=== PATIENT | female | born 1945 | race Caucasian/White ===

== ENCOUNTER → 2017-08-12 08:27 | Outpatient (CLI) | payer MEDICARE, BC, SELFPAY | PROVIDERS: Family Provider Family Medicine; PCP Family Medicine; Visit Provider Physician Assistant | DX: N39.0 Urinary tract infection, site not specified (principal) | CPT/HCPCS: 87086 ==

== ENCOUNTER → 2017-08-18 08:10 | Outpatient (CLI) | payer MEDICARE, BC, SELFPAY ==
[2017-08-18 09:11] LABS: Hemoglobin A1C% w Est Avg Glu 7.9 % (4.0-6.0)
== END ==
PROVIDERS: PCP Family Medicine; Visit Provider Family Medicine
DX: E11.9 Type 2 diabetes mellitus without complications (principal)
CPT/HCPCS: 36415; 83036

== ENCOUNTER → 2017-10-17 08:17 | Outpatient (CLI) | payer MEDICARE, BC, SELFPAY ==
[2017-10-17 09:30] LABS: Hemoglobin A1C% w Est Avg Glu 8.7 % (4.0-6.0)
[2017-10-17 09:52] LABS: BUN Creatinine Ratio 18.9 (6-22); Blood Urea Nitrogen 17 mg/dL (7-17); Calcium 9.4 mg/dL (8.4-10.2); Carbon Dioxide 28 mmol/L (22-32); Chloride 99 mmol/L (98-107); Estimated Glomerular Filt Rate > 60.0 mL/min (>60); Glucose 159 mg/dL (80-110); HEMOLYSIS < 15 (0-50); Potassium 4.1 mmol/L (3.4-5.1); Sodium 137 mmol/L (137-145)
== END ==
PROVIDERS: PCP Family Medicine; Visit Provider Family Medicine
DX: E11.9 Type 2 diabetes mellitus without complications (principal)
CPT/HCPCS: 80048; 83036

== ENCOUNTER → 2017-12-26 10:59 | Outpatient (CLI) | payer MEDICARE, BC, SELFPAY ==
[2017-12-26 11:29] LABS: Hemoglobin A1C% w Est Avg Glu 6.8 % (4.0-6.0)
[2017-12-26 11:51] LABS: Blood Urea Nitrogen 17 mg/dL (7-17); Calcium 10.3 mg/dL (8.4-10.2); Carbon Dioxide 30 mmol/L (22-32); Chloride 99 mmol/L (98-107); Estimated Glomerular Filt Rate 54.8 mL/min (>60); Glucose 119 mg/dL (80-110); HEMOLYSIS < 15 (0-50); Potassium 4.4 mmol/L (3.4-5.1); Sodium 138 mmol/L (137-145)
== END ==
PROVIDERS: Family Provider Family Medicine; PCP Student in an Organized Health Care Education/Training Program; Visit Provider Family Medicine
DX: N28.9 Disorder of kidney and ureter, unspecified (principal); E11.9 Type 2 diabetes mellitus without complications
CPT/HCPCS: 36415; 80048; 83036

== ENCOUNTER → 2018-02-05 09:14 | Outpatient (CLI) | payer MEDICARE, BC, SELFPAY ==
--- NOTE | 2018-02-05 | DI.MG.S_ITS ---
BILATERAL DIGITAL DIAGNOSTIC MAMMOGRAM 3D/2D SHORT-TERM FOLLOW-UP: 02/05/2018 CLINICAL: Patient returns for 6 month follow up of right breast, due for bilateral exam. Comparison is made to exams dated: 07/01/2017 mammogram, 12/20/2016 mammogram, and 12/05/2016 mammogram - [facility]. The tissue of both breasts is heterogeneously dense. This may lower the sensitivity of mammography. There are grouped linear and punctate calcifications in the right breast at 8 o'clock posterior depth. These are increased in number of calcifications. There are new grouped fine punctate calcifications in the left breast at 12 o'clock middle depth. No other significant masses or calcifications are seen in either breast. IMPRESSION: SUSPICIOUS OF MALIGNANCY The grouped linear punctate calcifications in the right breast at 8 o'clock posterior depth likely represent milk of calcium and are probably benign. A follow-up right mammogram in 6 months is recommended given the increase in number. The new grouped fine punctate calcifications in the left breast at 12 o'clock middle depth are at a low suspicion for malignancy. A stereotactic biopsy is recommended. The findings were discussed with the patient and her daughter at the conclusion of the study by Dr. Crain This exam was interpreted at Station ID: [id number]. NOTE: For mammograms, a report in lay terms will be sent to the patient. Approximately 15% of breast malignancies will not be visualized mammographically. In the management of a palpable breast mass, a negative mammogram must not discourage biopsy of a clinically suspicious lesion. Electronically Signed By: Navi Fox M.D. ddp/:02/05/2018 11:40:22 copy to: MARCIANO VASQUEZ MD copy to: MAURO RENAE letter sent: Biopsy Required ACR BI-RADS Category 4a: Suspicious abnormality - low suspicion for malignancy 3344F
== END ==
PROVIDERS: Family Provider Family Medicine; PCP Student in an Organized Health Care Education/Training Program; Visit Provider Family Medicine
DX: R92.1 Mammographic calcification found on diagnostic imaging of breast (principal)
CPT/HCPCS: 77066; G0279

== ENCOUNTER → 2018-04-14 10:52 | Outpatient (CLI) | payer MEDICARE, BC, SELFPAY ==
[2018-04-14 11:37] LABS: Hematocrit 43.9 % (36-46); Hemoglobin 14.6 g/dL (12.0-16.0); Mean Corpuscular HGB Conc 33.3 % (30-36); Mean Corpuscular Volume 87.1 fL (80-100); Platelet Count 215 X10^3/uL (150-400); Red Blood Cell Count 5.04 X10^6/uL (4.0-5.2); Red Cell Distribution Width 12.5 % (11.6-14.8)
[2018-04-14 11:52] LABS: Hemoglobin A1C% w Est Avg Glu 5.9 % (4.0-6.0)
[2018-04-14 12:07] LABS: BUN Creatinine Ratio 18.8 (6-22); Blood Urea Nitrogen 15 mg/dL (7-17); Calcium 9.6 mg/dL (8.4-10.2); Carbon Dioxide 30 mmol/L (22-32); Chloride 98 mmol/L (98-107); Estimated Glomerular Filt Rate > 60.0 mL/min (>60); Glucose 60 mg/dL (80-110); HEMOLYSIS < 15 (0-50); Potassium 4.5 mmol/L (3.4-5.1); Sodium 138 mmol/L (137-145)
[2018-04-14 12:18] LABS: Vitamin D 25 Hydroxy (D3) 27.3 ng/mL (30.0-100.0)
== END ==
PROVIDERS: PCP Student in an Organized Health Care Education/Training Program; Visit Provider Specialist
DX: N18.2 Chronic kidney disease, stage 2 (mild) (principal); E55.9 Vitamin D deficiency, unspecified; C64.9 Malignant neoplasm of unspecified kidney, except renal pelvis; F32.9 Major depressive disorder, single episode, unspecified; I10 Essential (primary) hypertension; E11.9 Type 2 diabetes mellitus without complications
CPT/HCPCS: 36415; 80048; 82306; 83036; 85027

== ENCOUNTER 2018-08-01 13:49 | Emergency (ER) | payer MEDICARE, BC, SELFPAY ==
[2018-08-01] VITALS (11 sets, daily range): BP systolic 90–181; BP diastolic 50–113; PULSE 56–90; RESP 12–22; TEMP 36.7; O2SAT 88–98
--- NOTE | 2018-08-01 14:08 | DI.RAD.S_ITS ---
PROCEDURE: XR CHEST 1V INDICATIONS: chest pain TECHNIQUE: One view of the chest was acquired. COMPARISON: [facility], CT, CT HEAD/BRAIN WO CON, 08/01/2018, 14:30. [facility], CT, CT ANGIO CHEST ABDOMEN PELVIS, 08/01/2018, 14:30. [facility], CR, CHEST 2 VIEW, 07/27/2015, 8:32. FINDINGS: Surgical changes and devices: Upper abdominal clips are seen in this patient with a known left nephrectomy. Lungs and pleura: Lungs are clear. No pleural effusions or pneumothorax. Mediastinum: Cardiac prominence is seen, which is compatible with the patient's known ascending thoracic aortic aneurysm. The cardiac contours are within normal limits. Bones and chest wall: No suspicious bony lesions. Age-appropriate bony degenerative changes are seen. Overlying soft tissues appear unremarkable. IMPRESSION: No acute abnormality is seen. Known ascending thoracic aortic aneurysm. Prior left nephrectomy. Dictated by: Jerome Murray M.D. on 08/01/2018 at 14:21 Approved by: Jerome Murray M.D. on 08/01/2018 at 14:22
[2018-08-01 14:14] LABS: Add Manual Diff / Slide Review NO; Basophils Absolute Auto 100 /uL (0-100); Basophils Percent Auto 1.3 % (0-2); Eosinophils Absolute Auto 100 /uL (0-450); Eosinophils Percent Auto 1.3 % (2-4); Hematocrit 43.6 % (36-46); Hemoglobin 14.7 g/dL (12.0-16.0); Lymphocytes Absolute Auto 2800 /uL (1100-4500); Lymphocytes Percent Auto 31.7 % (25-40); Mean Corpuscular HGB Conc 33.8 % (30-36); Mean Corpuscular Hemoglobin 28.5 PG (26-34); Mean Corpuscular Volume 84.1 fL (80-100); Monocytes Absolute Auto 600 /uL (0-900); Monocytes Percent Auto 7.1 % (3-14); Neutrophils Absolute Auto 5100 /uL (1500-7000); Neutrophils Percent Auto 58.6 % (50-75); Platelet Count 214 X10^3/uL (150-400); Red Blood Cell Count 5.18 X10^6/uL (4.0-5.2); Red Cell Distribution Width 13.3 % (11.6-14.8); White Blood Cell Count 8.8 X10^3/uL (4.5-11.0)
[2018-08-01] MEDS: ONDANSETRON 4 MG/2 ML INJ IV (14:23)
--- NOTE | 2018-08-01 14:23 | DI.CT.S_ITS ---
PROCEDURE: CT HEAD/BRAIN WO CON INDICATIONS: dizzy lightheaded passed out TECHNIQUE: This study was ordered with contrast, but was performed without contrast. Noncontrast 4.5 mm thick angled axial sections acquired from the foramen magnum to the vertex, with coronal and sagittal reformats. For radiation dose reduction, the following was used: automated exposure control, adjustment of mA and/or kV according to patient size. COMPARISON: Head CT 11/19/17. Located [facility], CR, XR CHEST 1V, 08/01/2018, 15:05. Located [facility], CT, CT ANGIO CHEST ABDOMEN PELVIS, 08/01/2018, 14:30. FINDINGS: Image quality: Excellent. CSF spaces: Basal cisterns are patent. No extra-axial fluid collections. The ventricles are symmetric in size and shape. Brain: No intracranial bleeds or masses. There is cerebral volume loss for age, with resultant ventricular and sulcal prominence. There are periventricular and deep white matter chronic small vessel ischemic changes. There is intracranial internal carotid artery atherosclerosis. Skull and face: Calvarium and visualized facial bones appear intact, without suspicious lesions. Sinuses: Visualized sinuses and mastoids are clear. IMPRESSION: Normal intracranial study for age, without an imaging explanation for the presenting symptoms. No significant change from the prior. Dictated by: Jerome Murray M.D. on 08/01/2018 at 14:23 Approved by: Jerome Murray M.D. on 08/01/2018 at 14:25
--- NOTE | 2018-08-01 14:23 | DI.CT.S_ITS ---
PROCEDURE: CT ANGIO CHEST ABDOMEN PELVIS INDICATIONS: Known ascending aneurysm TECHNIQUE: Precontrast images were not performed. After the administration of intravenous contrast, 2.5 mm thick sections again acquired from the lung apices to the iliac crests. Maximum intensity projection (MIP) oblique sagittal and coronal reformats were then acquired. For radiation dose reduction, the following was used: automated exposure control. This patient was premedicated. No immediate contrast reactions were experienced a COMPARISON: [facility], CR, XR CHEST 1V, 08/01/2018, 15:05. FINDINGS: Image quality: Excellent. AORTA: There is again seen in the ascending thoracic aortic aneurysm, which measures 4.7 cm transversely, when measured on coronal images. The aortic arch and descending thoracic aorta and a pelvic abdominal aorta likewise demonstrates normal caliber. No findings of dissection can be seen. Atherosclerotic calcification can be seen. CHEST: Lungs and pleura: Mild dependent atelectasis is seen. No pleural effusions or pneumothorax. Central and peripheral airways are patent and normal in caliber. Mediastinum: Heart size is normal. No pericardial effusion. No mediastinal or hilar adenopathy by size criteria. Central pulmonary arteries are normal in size. Esophagus is normal in caliber. No hiatal hernias. Bones and chest wall: No axillary adenopathy by size criteria. Thyroid gland demonstrates irregularity, without a focal lesion. No suspicious bony lesions. No vertebral body compression fractures. ABDOMEN: Vasculature: Celiac trunk and mesenteric arteries are patent. Renal arteries are also patent. Solid organs: Liver is normal in size and enhancement. Gallbladder demonstrates a gallstone within its lumen, as on series 10 image 106. Biliary system is non dilated. Pancreas enhances normally. Spleen is normal in size and enhancement. No adrenal nodules. This patient is status post left nephrectomy. No abnormal soft tissue can be seen within the left nephrectomy bed. The right kidney demonstrates no focal abnormality. No right-sided hydronephrosis is seen. Peritoneum and bowel: No free fluid or air. Bowel loops are normal in caliber and wall thickness. Nodes and vessels: No retroperitoneal or mesenteric adenopathy by size criteria. Inferior vena cava is normal in morphology. Miscellaneous: No ventral hernias. PELVIS: Genitourinary: Bladder wall thickness is normal. A fibroid uterus can be seen. Miscellaneous: No inguinal hernias or adenopathy. No ventral hernias. Bones: No suspicious bony lesions. No vertebral body compression fractures. Mild levoconvex scoliotic curvature is noted. Degenerative changes are seen throughout. IMPRESSION: Stable ascending thoracic aortic aneurysm, which measures 4.7cm transversely. Left nephrectomy, without findings of local recurrence or metastatic disease. Incidental note is made of: Irregular thyroid, without a focal lesion Gallstone Fibroid uterus Levoconvex scoliotic curvature Dictated by: Jerome Murray M.D. on 08/01/2018 at 14:12 Approved by: Jerome Murray M.D. on 08/01/2018 at 14:21
[2018-08-01] MEDS: methylPREDNISolone 125 MG/2 ML VIAL IV (14:28)
[2018-08-01] MEDS: diphenhydrAMINE 50 MG/ML VIAL 25 MG IV (14:28)
[2018-08-01] MEDS: SODIUM CHLORIDE 0.9% 1,000 ML 1000 ML IV (14:29)
[2018-08-01 14:30] LABS: PTT Partial Thromboplastin Tim 29 SECONDS (26.4-36.2)
[2018-08-01 14:32] LABS: Alanine Aminotransferase 23 IU/L (9-52); Albumin 4.6 g/dL (3.5-5.0); Albumin Globulin Ratio 1.2 (1.0-2.8); Alkaline Phosphatase 74 U/L (38-126); Aspartate Aminotransferase 24 IU/L (14-36); BUN Creatinine Ratio 22.9 (6-22); Bilirubin Total 0.7 mg/dL (0.2-1.3); Blood Urea Nitrogen 16 mg/dL (7-17); Calcium 9.8 mg/dL (8.4-10.2); Carbon Dioxide 25 mmol/L (22-32); Chloride 99 mmol/L (98-107); Creatine Kinase 82 U/L (30-135); Estimated Glomerular Filt Rate > 60.0 mL/min (>60); Globulin 3.7 g/dL (1.7-4.1); Glucose 146 mg/dL (80-110); HEMOLYSIS < 15 (0-50); Lipase 195 U/L (23-300); Potassium 3.4 mmol/L (3.4-5.1); Sodium 137 mmol/L (137-145); Total Protein 8.3 g/dL (6.3-8.2)
--- NOTE | 2018-08-01 14:33 | ED_ITS ---
HPI - Syncope General Chief Complaint: Dizziness Stated Complaint: dizzy, fainting, vomiting Time Seen by Provider: 08/01/18 14:14 Source: patient and family Mode of arrival: wheelchair Limitations: no limitations History of Present Illness HPI narrative: The patient is a sharon 72-year-old female who presents with dizziness lightheadedness nausea. She said she was doing well last night she had dinner with friends. Woke up this morning and was extremely dizzy. Worse with movement and turning her head. She has some point got nauseated no real vomiting. Extremely lightheaded. Walking into the hospital almost passed out. Her is helped her to the wheelchair. She denies any focal weakness no shaking or seizure activity. No speech difficulty or visual changes. Patient also has a known ascending aortic aneurysm. She denies any chest pain is is not hypotensive. No shortness of breath. MD complaint: almost passed out Current symptoms: lightheaded and vertigo Related Data Home Medications Medication Instructions Recorded Confirmed metoprolol succinate ER 100 mg 100 mg PO BID tab 07/07/18 08/01/18 tablet,extended release 24 hr losartan 50 mg PO BID 08/01/18 08/01/18 valacyclovir 500 mg PO DAILY 08/01/18 08/01/18 Previous Rx's Medication Instructions Recorded Glucose: Home Monitor box QDAY #1 05/16/16 Lancets / QDAY #100 05/16/16 atorvastatin 10 mg tablet 10 mg PO HS #90 tab 08/19/17 Glucose: Test Strips See Rx Instructions .ROUTE BID 01/02/18 #100 strip glimepiride 4 mg tablet 4 mg PO QAM #90 tab 06/03/18 sertraline 25 mg tablet 25 mg PO DAILY #30 tab 06/16/18 ondansetron 4 mg PO Q6-8H PRN #10 tab 08/01/18 Allergies Allergy/AdvReac Type Severity Reaction Status Date / Time iodine [IODINE] Allergy Severe HIVES, Verified 08/01/18 14:24 SWELLING, DIFFICULTY BREATHING, AND CHOKING Review of Systems Review of Systems ROS Unobtainable: All systems reviewed & are unremarkable except as noted in HPI and below Constitutional Denies chills, Denies fever(s), Denies lethargy and Denies weakness Eyes Denies change in vision, Denies eye discharge, Denies irritation and Denies loss of vision ENT Ears, Nose, Mouth, and Throat: Denies change in voice, Denies neck pain and Denies sore throat Cardiovascular Denies chest pain, Denies irregular heart rhythm, Denies claudication, Reports lightheadedness, Denies dyspnea and Denies dyspnea on exertion Respiratory Denies cough, Denies dyspnea, Denies dyspnea on exertion and Denies wheezing Gastrointestinal Gastrointestinal: Denies abdominal pain, Denies change in bowel habits, Denies diarrhea, Denies nausea and Denies vomiting Genitourinary Denies hematuria, Denies flank pain, Denies urinary incontinence and Denies urinary urgency Musculoskeletal Denies neck pain Integumentary/Breasts Denies pruritus, Denies erythema, Denies rash and Denies wounds Neurologic Denies loss of vision and Denies weakness Allergic/Immunologic Denies wheezing [facility] Medical History Anxiety (Chronic) Depression (Chronic) Ascending aortic aneurysm (Chronic ~2002) COPD (chronic obstructive pulmonary disease) (Chronic Unknown) Coronary artery disease (Chronic ~2013) Cancer of kidney (Resolved ~1987) Essential hypertension (Chronic 02/09/15) Mixed hyperlipidemia (Chronic 02/09/15) Type 2 diabetes mellitus without complication (Chronic 02/09/15) Chronic renal insufficiency, stage III (moderate) (Chronic 09/21/15) Genital herpes simplex (Chronic Unknown) Primary open angle glaucoma (Chronic 2008) Surgical History History of nephrectomy (Resolved 1987) History of breast biopsy (Resolved) Family History (Updated 12/29/17 @ 13:41 by Carleen Jean-Baptiste) Brother Lung cancer Father Pancreatic cancer Mother Heart disease Grandfather Heart disease Grandmother Bladder cancer Grandfather Heart disease Grandmother Heart disease Brother Hypertension Prostate cancer Daughter Hypertension Son No problems noted. Social History Smoking Status: Never smoker Family History Brother Lung cancer Father Pancreatic cancer Mother Heart disease Grandfather Heart disease Grandmother Bladder cancer Grandfather Heart disease Grandmother Heart disease Brother Hypertension Prostate cancer Daughter Hypertension Son No problems noted. Social History Smoking Status: Never smoker Exam Initial Vital Signs Initial Vital Signs: Vital Signs Temperature 98.1 F 08/01/18 13:50 Pulse Rate 60 08/01/18 13:50 Respiratory Rate 14 08/01/18 13:50 Blood Pressure 181/84 H 08/01/18 13:50 Pulse Oximetry 98 08/01/18 13:50 GENERAL: Weak slightly pale appearing female and in no acute distress. HEENT: Head atraumatic,EOMI, pupils reactive, no nystagmus face symmetric, moist mucous membranes CARDIOVASCULAR: Regular rate and rhythm without murmurs, rubs or gallops. RESPIRATORY: Breath sounds equal bilaterally, no wheezes rales or rhonchi. ABDOMEN: Soft, nontender. Normoactive bowel sounds all 4 quadrants. No guarding or rebound. EXTREMITIES: Normal range of motion, no clubbing or edema. Neurovascularly intact NEUROLOGICAL: Alert and oriented x4. No dysarthria or aphasia Cranial nerves II through XII grossly intact. Good [id number], good [id number], strength equal bilaterally, no dysarthria or aphasia, sensation in tact to soft touch bilaterally, no visual changes, no facial droop SKIN: Warm, dry, no laceration, no petechiae, no rashes or lesions. Scores NIH Stroke Scale Level of Conciousness: Alert, keenly responsive Ask month/age: Answers both questions correctly. Open/close eyes, close hand: Performs both tasks correctly Best gaze horizontal: Normal Visual sin: No visual loss Facial palsy: Normal symetrical movement Left arm drift: No drift for full 10 sec Right arm drift: No drift for full 10 sec Left leg drift: No drift for full 10 sec Right leg drift: No drift for full 10 sec Limb ataxia: Absent Sensory on face/arms/legs: Normal, no sensory loss Best language: No aphasia, normal Dysarthria: Normal Extinction or inattention: No abnormality Total NIH Stroke scale score: 0 Course Orders Ordered: ED Orders 08/01/18 14:08 XR chest 1V Stat EKG-12 Lead Stat 08/01/18 14:10 Complete Blood Count AUTO DIFF Stat Comprehensive Metabolic Panel Stat Lipase Stat Partial Thromboplastin Time Stat Prothrombin Time INR Stat Troponin & CK Cardiac Panel Stat 08/01/18 14:23 CT angio chest abdomen pelvis Stat CT head/brain w con Stat Discontinued Medications Diphenhydramine HCl (Benadryl) 25 mg IV NOW ONE Stop: 08/01/18 14:24 Last Admin: 08/01/18 14:28 Dose: 25 mg Sodium Chloride (Normal Saline 0.9%) 1,000 mls @ 1,000 mls/hr IV BOLUS ONE Stop: 08/01/18 15:24 Last Infusion: 08/01/18 15:59 Dose: 0 mls/hr Admin: 08/01/18 14:29 Dose: 1,000 mls/hr Methylprednisolone (Solu-Medrol 125 Mg Vial) 125 mg IV NOW ONE Stop: 08/01/18 14:24 Last Admin: 08/01/18 14:28 Dose: 125 mg Ondansetron HCl (Zofran) 4 mg IV NOW ONE Stop: 08/01/18 14:09 Last Admin: 08/01/18 14:23 Dose: 4 mg Vital Signs - 8 hr 08/01/18 13:50 08/01/18 14:00 08/01/18 14:16 Temperature 98.1 F Pulse Rate 60 60 56 L Respiratory Rate 14 12 17 Blood Pressure 181/84 H Blood Pressure [Left Arm] 159/62 H 150/113 H Blood Pressure [Right Arm] 181/84 H Pulse Oximetry 98 98 98 08/01/18 14:20 08/01/18 14:31 08/01/18 14:45 Temperature Pulse Rate 56 L 58 L 60 Respiratory Rate 17 16 18 Blood Pressure Blood Pressure [Left Arm] 159/60 H 90/50 L 121/72 Blood Pressure [Right Arm] Pulse Oximetry 92 91 90 L 08/01/18 14:55 08/01/18 14:57 08/01/18 15:11 Temperature Pulse Rate 64 60 64 Respiratory Rate 16 16 19 Blood Pressure Blood Pressure [Left Arm] 152/67 H 143/111 H Blood Pressure [Right Arm] Pulse Oximetry 88 L 95 97 08/01/18 15:50 08/01/18 16:00 Temperature Pulse Rate 58 L 90 Respiratory Rate 16 22 Blood Pressure Blood Pressure [Left Arm] 134/72 Blood Pressure [Right Arm] Pulse Oximetry 94 95 MDM - Syncope Lab Data Attestation: I reviewed the patient's lab results. Result diagrams: 08/01/18 14:10 08/01/18 14:10 Lab Results 08/01/18 08/01/18 08/01/18 Range/Units 14:10 14:10 14:10 WBC 8.8 (4.5-11.0) X10^3/uL RBC 5.18 (4.0-5.2) X10^6/uL Hgb 14.7 (12.0-16.0) g/dL Hct 43.6 (36-46) % MCV 84.1 (80-100) fL MCH 28.5 (26-34) PG MCHC 33.8 (30-36) % RDW 13.3 (11.6-14.8) % Plt Count 214 (150-400) X10^3/uL Neut % (Auto) 58.6 (50-75) % Lymph % (Auto) 31.7 (25-40) % Becker % (Auto) 7.1 (3-14) % Eos % (Auto) 1.3 L (2-4) % Baso % (Auto) 1.3 (0-2) % Neut # (Auto) 5100 (2651-0890) /uL Lymph # (Auto) 2800 (2934-5499) /uL Becker # (Auto) 600 (0-900) /uL Eos # (Auto) 100 (0-450) /uL Baso # (Auto) 100 (0-100) /uL PT 11.0 (10.1-12.7) SECONDS INR 1.0 (0.9-1.3) APTT 29 (26.4-36.2) SECONDS Sodium 137 (137-145) mmol/L Potassium 3.4 (3.4-5.1) mmol/L Chloride 99 (98-107) mmol/L Carbon Dioxide 25 (22-32) mmol/L BUN 16 (7-17) mg/dL Creatinine 0.70 (0.52-1.04) mg/dL Estimated GFR > 60.0 (>60) mL/min BUN/Creatinine Ratio 22.9 H (6-22) Glucose 146 H (80-110) mg/dL Calcium 9.8 (8.4-10.2) mg/dL Total Bilirubin 0.7 (0.2-1.3) mg/dL AST 24 (14-36) IU/L ALT 23 (9-52) IU/L Alkaline Phosphatase 74 (38-126) U/L Total Creatine Kinase 82 (30-135) U/L CK-MB (CK-2) TNP CK-MB (CK-2) Rel Index TNP Troponin I < 0.012 (0.01-0.034) ng/mL Total Protein 8.3 H (6.3-8.2) g/dL Albumin 4.6 (3.5-5.0) g/dL Globulin 3.7 (1.7-4.1) g/dL Albumin/Globulin Ratio 1.2 (1.0-2.8) Lipase 195 (23-300) U/L Point of Care Testing Glucose POC 128 Urine Dip Bedside Urine Glucose Negative Bedside Urine Bilirubin - Negative Bedside Urine Ketone - Negative Urine Specific [place] 1.010 Bedside Urine Occult Blood - Negative Bedside Urine pH 7.0 Bedside Urine Protein +/- 15 Bedside Urine Urobilinogen - Negative Bedside Urine Nitrite - Negative Bedside Urine Leukocytes - Negative Esterase Imaging Data Chest x-ray: Radiologist's impression: PROCEDURE: XR CHEST 1V INDICATIONS: chest pain TECHNIQUE: One view of the chest was acquired. COMPARISON: [facility], CT, CT HEAD/BRAIN WO CON, 08/01/2018, 14:30. [facility], CT, CT ANGIO CHEST ABDOMEN PELVIS, 08/01/2018, 14:30. [facility], CR, CHEST 2 VIEW, 07/27/2015, 8:32. FINDINGS: Surgical changes and devices: Upper abdominal clips are seen in this patient with a known left nephrectomy. Lungs and pleura: Lungs are clear. No pleural effusions or pneumothorax. Mediastinum: Cardiac prominence is seen, which is compatible with the patient's known ascending thoracic aortic aneurysm. The cardiac contours are within normal limits. Bones and chest wall: No suspicious bony lesions. Age-appropriate bony degenerative changes are seen. Overlying soft tissues appear unremarkable. IMPRESSION: No acute abnormality is seen. Known ascending thoracic aortic aneurysm. Prior left nephrectomy. Dictated by: Jerome Murray M.D. on 08/01/2018 at 14:21 CTA chest/ab/pelvis: Radiologist's impression: PROCEDURE: CT ANGIO CHEST ABDOMEN PELVIS INDICATIONS: Known ascending aneurysm TECHNIQUE: Precontrast images were not performed. After the administration of intravenous contrast, 2.5 mm thick sections again acquired from the lung apices to the iliac crests. Maximum intensity projection (MIP) oblique sagittal and coronal reformats were then acquired. For radiation dose reduction, the following was used: automated exposure control. This patient was premedicated. No immediate contrast reactions were experienced a COMPARISON: [facility], CR, XR CHEST 1V, 08/01/2018, 15:05. FINDINGS: Image quality: Excellent. AORTA: There is again seen in the ascending thoracic aortic aneurysm, which measures 4.7 cm transversely, when measured on coronal images. The aortic arch and descending thoracic aorta and a pelvic abdominal aorta likewise demonstrates normal caliber. No findings of dissection can be seen. Atherosclerotic calcification can be seen. CHEST: Lungs and pleura: Mild dependent atelectasis is seen. No pleural effusions or pneumothorax. Central and peripheral airways are patent and normal in caliber. Mediastinum: Heart size is normal. No pericardial effusion. No mediastinal or hilar adenopathy by size criteria. Central pulmonary arteries are normal in size. Esophagus is normal in caliber. No hiatal hernias. Bones and chest wall: No axillary adenopathy by size criteria. Thyroid gland demonstrates irregularity, without a focal lesion. No suspicious bony lesions. No vertebral body compression fractures. ABDOMEN: Vasculature: Celiac trunk and mesenteric arteries are patent. Renal arteries are also patent. Solid organs: Liver is normal in size and enhancement. Gallbladder demonstrates a gallstone within its lumen, as on series 10 image 106. Biliary system is non dilated. Pancreas enhances normally. Spleen is normal in size and enhancement. No adrenal nodules. This patient is status post left nephrectomy. No abnormal soft tissue can be seen within the left nephrectomy bed. The right kidney demonstrates no focal abnormality. No right-sided hydronephrosis is seen. Peritoneum and bowel: No free fluid or air. Bowel loops are normal in caliber and wall thickness. Nodes and vessels: No retroperitoneal or mesenteric adenopathy by size criteria. Inferior vena cava is normal in morphology. Miscellaneous: No ventral hernias. PELVIS: Genitourinary: Bladder wall thickness is normal. A fibroid uterus can be seen. Miscellaneous: No inguinal hernias or adenopathy. No ventral hernias. Bones: No suspicious bony lesions. No vertebral body compression fractures. Mild levoconvex scoliotic curvature is noted. Degenerative changes are seen thro ughout. IMPRESSION: Stable ascending thoracic aortic aneurysm, which measures 4.7cm transversely. Left nephrectomy, without findings of local recurrence or metastatic disease. Incidental note is made of: Irregular thyroid, without a focal lesion Gallstone Fibroid uterus Levoconvex scoliotic curvature Dictated by: Jerome Murray M.D. on 08/01/2018 at 14:12 CT scan - head: Radiologist's impression: PROCEDURE: CT HEAD/BRAIN WO CON INDICATIONS: dizzy lightheaded passed out TECHNIQUE: This study was ordered with contrast, but was performed without contrast. Noncontrast 4.5 mm thick angled axial sections acquired from the foramen magnum to the vertex, with coronal and sagittal reformats. For radiation dose reduction, the following was used: automated exposure control, adjustment of mA and/or kV according to patient size. COMPARISON: Head CT 11/19/17. [facility], CR, XR CHEST 1V, 08/01/2018, 15:05. [facility], CT, CT ANGIO CHEST ABDOMEN PELVIS, 08/01/2018, 14:30. FINDINGS: Image quality: Excellent. CSF spaces: Basal cisterns are patent. No extra-axial fluid collections. The ventricles are symmetric in size and shape. Brain: No intracranial bleeds or masses. There is cerebral volume loss for age, with resultant ventricular and sulcal prominence. There are periventricular and deep white matter chronic small vessel ischemic changes. There is intracranial internal carotid artery atherosclerosis. Skull and face: Calvarium and visualized facial bones appear intact, without suspicious lesions. Sinuses: Visualized sinuses and mastoids are clear. IMPRESSION: Normal intracranial study for age, without an imaging explanation for the presenting symptoms. No significant change from the prior. Dictated by: Jerome Murray M.D. on 08/01/2018 at 14:23 ECG Data Attestation: I personally reviewed and interpreted this ECG as follows: Prior ECG tracings: available for review Interpretation: Normal sinus rhythm rate 58 Q-wave noted in lead [address] elevations no T-wave inversions similar to previous EKG MDM Narrative Medical decision making narrative: Patient is overall feeling much better after IV fluids and Zofran. Head CT and CT angio are stable. His she is ambulatory to the restroom without any difficulty. At this time I had symptoms suggest more vertigo rather than a CVA. Her aneurysm is stable. Patient feels ready and able to go home. Discharge Plan Departure Patient Disposition: Home Clinical Impression: Vertigo Discharge Date/Time: 08/01/18 16:31 Interventions: ED Discharge Assessment Last Done: 08/01/18 16:30 Instructions: DI for Vertigo Activity Restrictions/Additional Instructions: *You have been diagnosed with vertigo *What to do: Symptoms should resolve spontaneously. Recommend sleeping. *Continue to take medications as directed -Zofran mg every 6-8 hours if needed for nausea *Follow up with your primary care provider in 2-3 days --sent to [facility] *Return to ER if you should have worsening dizziness, balance problems, weakness or any new, worsening or concerning symptoms Prescriptions: New ondansetron 4 mg tablet,disintegrating 4 mg PO Q6-8H PRN (Reason: nausea and vomiting) Qty: 10 RF: 0 No Action atorvastatin [Lipitor] 10 mg tablet 10 mg PO HS Qty: 90 RF: 3 Glucose: Home Monitor QDAY Qty: 1 RF: 0 Lancets QDAY Qty: 100 RF: 0 Glucose: Test Strips See Rx Instructions .ROUTE BID Qty: 100 RF: 3 glimepiride 4 mg tablet 4 mg PO QAM Qty: 90 RF: 1 sertraline 25 mg tablet 25 mg PO DAILY Qty: 30 RF: 11 metoprolol succinate [Toprol XL] 100 mg tablet extended release 24 hr 100 mg PO BID RF: 0 losartan 50 mg tablet 50 mg PO BID RF: 0 valacyclovir 500 mg tablet 500 mg PO DAILY RF: 0 Referrals: Erik Russell MD [Primary Care Provider] -
[2018-08-01 14:43] LABS: Troponin I < 0.012 ng/mL (0.01-0.034)
--- NOTE | 2018-08-01 16:00 | PC.NURSE ---
Pt walked with steady gait without issue. States feeling much better, not quite back to normal.
== END 2018-08-01 16:31 | disposition home or self-care (01) ==
PROVIDERS: Emergency Provider Emergency Medicine; PCP Student in an Organized Health Care Education/Training Program
DX: R42 Dizziness and giddiness (principal); R55 Syncope and collapse; R11.0 Nausea
CPT/HCPCS: 36591; 70460; 71045; 71275; 74174; 80053; 81003; 82550; 82962; 83690; 84484; 85025; 85610; 85730; 93005; 93010; 96361; 96374; 96375; 99285; J1200; J2405; J2930; Q9967

== ENCOUNTER → 2018-08-25 12:32 | Outpatient (CLI) | payer MEDICARE, BC, SELFPAY ==
--- NOTE | 2018-08-25 12:33 | DI.MG.S_ITS ---
UNILATERAL RIGHT DIGITAL DIAGNOSTIC MAMMOGRAM 3D/2D SHORT-TERM FOLLOW-UP: 08/25/2018 CLINICAL: Patient returns for a 6 month follow up of the right breast. Comparison is made to exams dated: 02/05/2018 mammogram, 07/01/2017 mammogram, 12/20/2016 mammogram, and 12/05/2016 mammogram - [facility]. The tissue of right breast is heterogeneously dense. This may lower the sensitivity of mammography. There are a grouped linear punctate calcifications in the right breast at 8 o'clock posterior depth. These are not significantly changed. No other significant masses or calcifications are seen in the breast. IMPRESSION: PROBABLY BENIGN The grouped linear punctate calcifications in the right breast remain stable and are probably benign. A follow-up mammogram in 6 months is recommended to complete documentation of 2 years of stability. Patient is due for screening mammogram of the left breast in 6 months. This exam was interpreted at Station ID: [id number]. NOTE: For mammograms, a report in lay terms will be sent to the patient. Approximately 15% of breast malignancies will not be visualized mammographically. In the management of a palpable breast mass, a negative mammogram must not discourage biopsy of a clinically suspicious lesion. Electronically Signed By: Kevin Gifford M.D. aty/:08/25/2018 14:01:00 copy to: MARCIANO VASQUEZ MD letter sent: Followup Recommended ACR BI-RADS Category 3: Probably benign [id number]
== END ==
PROVIDERS: PCP Student in an Organized Health Care Education/Training Program; Visit Provider Student in an Organized Health Care Education/Training Program
DX: R92.1 Mammographic calcification found on diagnostic imaging of breast (principal)
CPT/HCPCS: 77065; G0279

== ENCOUNTER → 2018-10-01 07:59 | Outpatient (CLI) | payer MEDICARE, BC, SELFPAY ==
--- NOTE | 2018-10-01 08:02 | DI.US.S_ITS ---
PROCEDURE: US ABDOMEN COMPLETE INDICATIONS: Abdominal and side pain TECHNIQUE: Real-time scanning was performed of the abdominal and retroperitoneal organs, with image documentation. COMPARISON: [facility], US, RENAL COMPLETE, 11/11/2014, 14:20. [facility], US, RENAL OR RETROPERITONEAL LIMIT, 02/14/2014, 11:13. [facility], US, RENAL COMPLETE, 06/01/2012, 9:28. [facility], US, ABDOMEN COMPLETE, 06/01/2012, 9:41. [facility], CT, CT ANGIO CHEST ABDOMEN PELVIS, 08/01/2018, 14:30. FINDINGS: Liver: Liver is normal in size and homogeneous in echotexture. Gallbladder: There are gallstones. There is no gallbladder wall thickening, pericholecystic fluid or sonographic Mccauley's sign. Biliary ducts: Intrahepatic bile ducts are non-dilated. Extrahepatic bile duct caliber measures 4.4 mm. Normal is 6-7 mm or less in diameter, or 10 mm or less post-cholecystectomy. Pancreas: Visualized portions of the pancreas are sonographically normal. Spleen: Spleen is normal in size and homogeneous in echotexture. Kidneys: Left kidney is absent. Right kidney measures 12.0 cm long. No hydronephrosis or nephrolithiasis. No solid masses. Aorta: Visualized aorta is normal in caliber at less than 3 cm. Iliacs: Proximal common iliac arteries are normal in caliber at less than 2.5 cm. IVC: Intrahepatic inferior vena cava is patent. Miscellaneous: No free abdominal fluid. IMPRESSION: 1. Cholelithiasis. No ultrasound findings to suggest acute cholecystitis. 2. 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 Dictated by: Jonas Jorge M.D. on 10/01/2018 at 10:31 Approved by: Jonas Jorge M.D. on 10/01/2018 at 10:36
== END ==
PROVIDERS: PCP Student in an Organized Health Care Education/Training Program; Visit Provider Registered Nurse
DX: K80.20 Calculus of gallbladder without cholecystitis without obstruction (principal); R10.32 Left lower quadrant pain; Z90.5 Acquired absence of kidney
CPT/HCPCS: 76700

== ENCOUNTER → 2018-12-17 07:23 | Outpatient (CLI) | payer MEDICARE, BC, SELFPAY ==
[2018-12-17 08:43] LABS: Hemoglobin A1C% w Est Avg Glu 7.3 % (4.0-6.0)
== END ==
PROVIDERS: PCP Student in an Organized Health Care Education/Training Program; Visit Provider Student in an Organized Health Care Education/Training Program
DX: E11.9 Type 2 diabetes mellitus without complications (principal)
CPT/HCPCS: 36415; 83036

== ENCOUNTER → 2019-03-26 12:27 | Outpatient (CLI) | payer MEDICARE, BC, SELFPAY ==
--- NOTE | 2019-03-26 12:28 | DI.MG.S_ITS ---
BILATERAL DIGITAL DIAGNOSTIC MAMMOGRAM 3D/2D SHORT-TERM FOLLOW-UP: 03/26/2019 CLINICAL: Patient returns for 24 month follow up of right breast, due for bilateral exam. Comparison is made to exams dated: 08/25/2018 mammogram, 02/05/2018 mammogram, and 12/05/2016 mammogram - [facility]. The tissue of both breasts is heterogeneously dense. This may lower the sensitivity of mammography. There are stable benign grouped fine calcifications in the right breast at 8 o'clock posterior depth. There are linear fine calcifications in the left breast middle depth lateral region seen on the craniocaudal view only. No other significant masses or calcifications are seen in either breast. IMPRESSION: INCOMPLETE: NEEDS ADDITIONAL IMAGING EVALUATION The linear fine calcifications in the left breast middle depth lateral region seen on the craniocaudal view only are consistent with vascular calcifications and are benign. Stable right breast posterior calcifications consistent with a benign process given 2 year stability. There is no abnormality seen in the right breast to correspond with the pain in the upper outer quadrant, however, ultrasound is recommended. This exam was interpreted at Station ID: [id number]. NOTE: For mammograms, a report in lay terms will be sent to the patient. Approximately 15% of breast malignancies will not be visualized mammographically. In the management of a palpable breast mass, a negative mammogram must not discourage biopsy of a clinically suspicious lesion. Electronically Signed By: Navi Fox M.D. [email or web address]/:03/26/2019 14:51:31 copy to: MARCIANO VASQUEZ MD letter sent: Need Ultrasound ACR BI-RADS Category 0: Incomplete [id number]
== END ==
PROVIDERS: PCP Student in an Organized Health Care Education/Training Program; Visit Provider Student in an Organized Health Care Education/Training Program
DX: R92.8 Other abnormal and inconclusive findings on diagnostic imaging of breast (principal); R92.1 Mammographic calcification found on diagnostic imaging of breast; N64.4 Mastodynia
CPT/HCPCS: 77066; G0279

== ENCOUNTER → 2019-04-02 07:21 | Outpatient (CLI) | payer MEDICARE, BC, SELFPAY ==
[2019-04-02 08:36] LABS: Alanine Aminotransferase 17 IU/L (<35); Albumin 4.5 g/dL (3.5-5.0); Albumin Globulin Ratio 1.2 (1.0-2.8); Alkaline Phosphatase 66 U/L (38-126); Aspartate Aminotransferase 25 IU/L (14-36); BUN Creatinine Ratio 18.8 (6-22); Bilirubin Total 0.7 mg/dL (0.2-1.3); Blood Urea Nitrogen 15 mg/dL (7-17); Calcium 9.6 mg/dL (8.4-10.2); Carbon Dioxide 27 mmol/L (22-32); Chloride 101 mmol/L (98-107); Estimated Glomerular Filt Rate > 60.0 mL/min (>60); Globulin 3.7 g/dL (1.7-4.1); Glucose 177 mg/dL (80-110); HEMOLYSIS < 15 (0-50); Potassium 4.1 mmol/L (3.4-5.1); Sodium 139 mmol/L (137-145); Total Protein 8.2 g/dL (6.3-8.2)
[2019-04-05 11:23] LABS: Lipoprofile NMR SEE SEPERATE REPORT
== END ==
PROVIDERS: Family Provider Specialist; PCP Student in an Organized Health Care Education/Training Program; Visit Provider Student in an Organized Health Care Education/Training Program
DX: E78.2 Mixed hyperlipidemia (principal)
CPT/HCPCS: 36415; 80053; 83704

== ENCOUNTER → 2019-04-05 12:07 | Outpatient (CLI) | payer MEDICARE, BC, SELFPAY ==
--- NOTE | 2019-04-05 12:09 | DI.US.S_ITS ---
LIMITED ULTRASOUND OF RIGHT BREAST: 04/05/2019 CLINICAL: Rt breast pain. Comparison is made to exams dated: 03/26/2019 mammogram, 08/25/2018 mammogram, 02/05/2018 mammogram, 07/01/2017 mammogram, and 12/20/2016 mammogram - [facility]. Real-time ultrasound of the right breast upper outer quadrant was performed on the area of interest. IMPRESSION: NEGATIVE There is no sonographic evidence of malignancy. There is no abnormality seen in the right breast to correspond with the pain in the upper outer quadrant, however, clinical followup is recommended. A 1 year screening mammogram is recommended. This exam was interpreted at Station ID: [id number]. Electronically Signed By: Navi [email or web address]/yi:04/05/2019 14:16:13 copy to: MARCIANO VASQUEZ MD letter sent: Clinical Evaluation Ultrasound BI-RADS: 1 Negative
== END ==
PROVIDERS: PCP Student in an Organized Health Care Education/Training Program; Visit Provider Student in an Organized Health Care Education/Training Program
DX: R92.8 Other abnormal and inconclusive findings on diagnostic imaging of breast (principal); N64.4 Mastodynia
CPT/HCPCS: 76642

== ENCOUNTER → 2019-05-07 10:30 | Outpatient (CLI) | payer MEDICARE, BC, SELFPAY ==
[2019-05-07 11:00] LABS: Hemoglobin A1C% w Est Avg Glu 7.5 % (4.0-6.0)
== END ==
PROVIDERS: PCP Student in an Organized Health Care Education/Training Program; Referring Provider Student in an Organized Health Care Education/Training Program; Visit Provider Student in an Organized Health Care Education/Training Program
DX: E11.9 Type 2 diabetes mellitus without complications (principal)
CPT/HCPCS: 36415; 83036

== ENCOUNTER → 2019-11-24 13:13 | Outpatient (CLI) | payer MEDICARE, BC, SELFPAY ==
[2019-11-24 13:50] LABS: Hemoglobin A1C% w Est Avg Glu 9.3 % (4.0-6.0)
== END ==
PROVIDERS: PCP Student in an Organized Health Care Education/Training Program; Referring Provider Student in an Organized Health Care Education/Training Program; Visit Provider Student in an Organized Health Care Education/Training Program
DX: E11.9 Type 2 diabetes mellitus without complications (principal)
CPT/HCPCS: 36415; 83036

== ENCOUNTER → 2020-03-16 14:46 | Outpatient (CLI) | payer MEDICARE, BC, SELFPAY ==
[2020-03-16 15:57] LABS: Hemoglobin A1C% w Est Avg Glu 8.9 % (4.0-6.0)
[2020-03-16 16:14] LABS: BUN Creatinine Ratio 19.7 (6-22); Blood Urea Nitrogen 12 mg/dL (7-17); Calcium 9.6 mg/dL (8.4-10.2); Carbon Dioxide 32 mmol/L (22-32); Chloride 97 mmol/L (98-107); Cholesterol 229 mg/dL (140-199); Estimated Glomerular Filt Rate > 60.0 mL/min (>60); Glucose 194 mg/dL (80-110); HDL Cholesterol 26 mg/dL (40-60); HEMOLYSIS < 15 (0-50); Potassium 4.1 mmol/L (3.4-5.1); Sodium 135 mmol/L (137-145)
[2020-03-16 16:22] LABS: Triglycerides 1147 mg/dL (35-150)
== END ==
PROVIDERS: PCP Student in an Organized Health Care Education/Training Program; Referring Provider Student in an Organized Health Care Education/Training Program; Visit Provider Student in an Organized Health Care Education/Training Program
DX: E11.9 Type 2 diabetes mellitus without complications (principal); E78.2 Mixed hyperlipidemia; I10 Essential (primary) hypertension
CPT/HCPCS: 36415; 80048; 80061; 83036

== ENCOUNTER → 2020-06-06 16:58 | Outpatient (CLI) | payer MEDICARE, BC, SELFPAY ==
--- NOTE | 2020-06-06 | DI.MG.S_ITS ---
BILATERAL DIGITAL SCREENING MAMMOGRAM 3D/2D WITH CAD: 06/06/2020 CLINICAL: Routine screening. Comparison is made to exams dated: 03/26/2019 mammogram, 08/25/2018 mammogram, and 02/05/2018 mammogram - [facility]. The tissue of both breasts is heterogeneously dense. This may lower the sensitivity of mammography. Current study was also evaluated with a Computer Aided Detection (CAD) system. There are benign calcifications in both breasts. There also are benign vascular calcifications in the left breast. Additionally, there are benign post operative findings in the right breast. No significant masses, calcifications, or other findings are seen in either breast. There has been no significant interval change. IMPRESSION: BENIGN There is no mammographic evidence of malignancy. A 1 year screening mammogram is recommended. This exam was interpreted at Station ID: [id number]. NOTE: For mammograms, a report in lay terms will be sent to the patient. Approximately 15% of breast malignancies will not be visualized mammographically. In the management of a palpable breast mass, a negative mammogram must not discourage biopsy of a clinically suspicious lesion. Electronically Signed By: Francesco Vasquez acr/penrad:06/07/2020 08:39:08 letter sent: Normal Exam ACR BI-RADS Category 2: Benign Finding(s) 3342F
== END ==
PROVIDERS: PCP Student in an Organized Health Care Education/Training Program; Referring Provider Student in an Organized Health Care Education/Training Program; Visit Provider Student in an Organized Health Care Education/Training Program
DX: Z12.31 Encounter for screening mammogram for malignant neoplasm of breast (principal)
CPT/HCPCS: 77063; 77067

== ENCOUNTER → 2020-06-13 07:11 | Outpatient (CLI) | payer MEDICARE, BC, SELFPAY ==
[2020-06-13 08:28] LABS: Alanine Aminotransferase 14 IU/L (<35); Albumin 4.4 g/dL (3.5-5.0); Albumin Globulin Ratio 1.2 (1.0-2.8); Alkaline Phosphatase 79 U/L (38-126); Aspartate Aminotransferase 22 IU/L (14-36); BUN Creatinine Ratio 16.4 (6-22); Bilirubin Total 0.5 mg/dL (0.2-1.3); Blood Urea Nitrogen 10 mg/dL (7-17); Calcium 9.6 mg/dL (8.4-10.2); Carbon Dioxide 26 mmol/L (22-32); Chloride 101 mmol/L (98-107); Estimated Glomerular Filt Rate > 60.0 mL/min (>60); Globulin 3.6 g/dL (1.7-4.1); Glucose 235 mg/dL (80-110); HEMOLYSIS < 15 (0-50); Magnesium 1.6 mg/dL (1.6-2.3); Sodium 136 mmol/L (137-145)
[2020-06-15 08:51] LABS: Cholesterol, Total 190 mg/dL (100-199); HDL-Cholesterol 28 mg/dL (>39); LDL Particle 1238 nmol/L (<1000); LDL Size 19.5 nm (>20.5); LDL-Cholsterol 66 mg/dL (0-99); LP-IR Score 89 (<=45); Small LDL- Particle 886 nmol/L (<=527); Triglycerides 624 mg/dL (0-149)
[2020-06-17 10:59] LABS: Lipase 166 U/L (23-300)
[2020-06-17 12:20] LABS: Thyroid Stimulating Hormone 6.61 uIU/mL (0.47-4.68)
== END ==
PROVIDERS: PCP Student in an Organized Health Care Education/Training Program; Referring Provider Specialist; Visit Provider Specialist
DX: I10 Essential (primary) hypertension (principal); E78.2 Mixed hyperlipidemia; E11.9 Type 2 diabetes mellitus without complications
CPT/HCPCS: 36415; 80053; 80061; 83690; 83704; 83735; 84443

== ENCOUNTER → 2020-06-23 09:00 | Outpatient (CLI) | payer MEDICARE, BC, SELFPAY ==
[2020-06-23 09:48] LABS: Hemoglobin A1C% w Est Avg Glu 9.2 % (4.0-6.0)
[2020-06-23 15:09] LABS: Creatinine Urine Random 174.4 mg/dL; Microalbumi Creatinin Ratio Ur 106.6 ug/mg CR (<30); Microalbumin Urine Random 18.6 mg/dL (0-1.6)
== END ==
PROVIDERS: PCP Student in an Organized Health Care Education/Training Program; Referring Provider Student in an Organized Health Care Education/Training Program; Visit Provider Student in an Organized Health Care Education/Training Program
DX: E11.9 Type 2 diabetes mellitus without complications (principal); E78.2 Mixed hyperlipidemia; I10 Essential (primary) hypertension
CPT/HCPCS: 36415; 82043; 82570; 83036

== ENCOUNTER → 2020-06-26 13:22 | Outpatient (CLI) | payer MEDICARE, BC, SELFPAY ==
--- NOTE | 2020-06-26 13:24 | DI.US.S_ITS ---
PROCEDURE: US CAROTID DOPPLER BI INDICATIONS: DECREASED CAROTID PULSE Thoracic aortic aneurysm TECHNIQUE: Color and pulse Doppler interrogation was performed of both carotid systems, with image documentation and velocity measurements. COMPARISON: None. FINDINGS: Stenosis calculations are based on SRU (Society of Radiologists in Ultrasound) criteria. The flow velocities and the arterial waveforms are normal within both carotid arterial systems. Minimal atherosclerotic plaque is seen. The estimated degree of internal carotid artery stenosis is less than 50%. Antegrade flow is confirmed within both vertebral arteries. IMPRESSION: No hemodynamically significant stenosis is seen. Dictated by: Jerome Murray M.D. on 06/26/2020 at 15:15 Approved by: Jerome Murray M.D. on 06/26/2020 at 15:15
--- NOTE | 2020-06-26 13:25 | DI.ECHO.S_ITS ---
[facility] +---------+ : : [address] : : : : [id number] : : : : Phone: [phone]+ Echocardiogram Report + + :Name: LEW PRATER Study Date: 06/26/2020 Height: 64 in : :[facility] ReadingLocation: Weight: 150 lb : : Gender: Female BSA: 1.7 m2 : :: 1945 Age: 74 yrs BP: 160/80 mmHg: :Reason For Study: Aortic, Ascending Aneurysm : :Ordering Physician: Ryan : :Sofya Vera Performed By: Jr Velásquez : :Referring: RYAN VERA : + + Interpretation Summary Left ventricular systolic function remains borderline reduced in a global fashion with an estimated ejection fraction of 50 to 55% without any focal wall motion abnormality and appears unchanged from the previous exam. Left ventricular size remains at the upper limits of normal and likely unchanged compared to the previous study. Diastolic function remains challenging to assess but is likely unchanged without evidence for significantly increased filling pressures. The right ventricle appears normal. Right ventricular systolic pressure cannot be estimated but CVP is likely around 3 mmHg. Both atria are normal in size and grossly unchanged from the previous study. There is mild mitral, mild pulmonic, and moderate aortic regurgitation, and all are likely unchanged from the previous study. The ascending aorta remains moderate??severely enlarged, measuring 4.9 cm compared to 4.7 cm previously but is likely grossly unchanged with differences in measuring technique. Procedure: A two-dimensional transthoracic echocardiogram with color flow and Doppler was performed. The study quality was technically adequate. Comparison is made with the echocardiogram of 04/28/2018. The patient was in sinus rhythm with heart rates between 54-60 bpm during the exam. Left Ventricle: Left ventricular size is at the upper limits of normal. There is normal left ventricular wall thickness. The estimated left ventricular end diastolic volume is 78 mL compared to the previous 103 ml. Left ventricular systolic function appears normal without focal wall motion abnormalities. The ejection fraction is estimated to be 50-55%. There are no focal wall motion abnormalities. Diastolic function could not be accurately assessed due to contradictory data. This is unchanged compared to the previous study. Right Ventricle: The right ventricle is normal in size and function. This is unchanged compared to the previous study. Atria: Both atria are normal in size. This is unchanged compared to the previous study. There is no Doppler evidence for an interatrial shunt. Mitral Valve: The mitral valve is normal in structure and function. There is mild mitral regurgitation. This is unchanged compared to the previous study. Aortic Valve: The aortic valve is trileaflet. There is mild aortic valve sclerosis. The aortic valve is slightly calcified. The aortic valve opens well. There is moderate aortic regurgitation. This is unchanged compared to the previous study. Tricuspid Valve: The tricuspid valve is normal in structure and function. There is trace tricuspid regurgitation. Pulmonary artery pressures cannot be estimated because of the lack of a measurable TR jet velocity but the IVC suggests a CVP of around 3 mmHg. Pulmonic Valve: The pulmonic valve is not well seen, but is grossly normal. There is mild pulmonic regurgitation. This is likely unchanged compared to the previous study. Great Vessels: The aortic root is normal size. The ascending aorta is moderate-severely enlarged. This is unchanged compared to the previous study. The IVC is of normal diameter and collapses greater than 50% with a sniff. This suggests a low right atrial pressure of 3 mm Hg. Pericardium/ Pleura There is no pericardial effusion. There is no pleural effusion. MMode/2D Measurements & Calculations LVIDd: 5.4 cm LVOT diam: 2.1 cm LVIDs: 3.7 cm Ao root diam: 3.5 cm FS: 31.3 % asc Aorta Diam: 4.9 cm IVSd: 0.89 cm LVPWd: 0.82 cm LV robles. diameter/BSA (cm/m^2): 3.1 LV sys. diameter/BSA (cm/m^2): 2.1 LA A2 area: 13.8 cm2 RA area: 15.5 cm2 LA A4 area: 18.7 cm2 LA length (vol): 4.7 cm LA vol: 46.4 ml LA vol index: 26.8 ml/m2 RVD1 (basal): 2.7 cm TAPSE: 2.4 cm Doppler Measurements & Calculations Ao V2 max: 128.2 cm/sec LVOT Max Dre: 102.4 cm/sec Ao V2 mean: 91.0 cm/sec LV V1 max P.2 mmHg Ao max P.6 mmHg LV V1 VTI: 25.8 cm Ao mean P.6 mmHg LUIS(I,D): 2.8 cm2 Ao V2 VTI: 30.4 cm LUIS(V,D): 2.6 cm2 sev ratio: 0.85 LUIS indexed to BSA (cm^2/m^2): 1.6 AI P1/2t: 739.7 msec AI dec slope: 187.0 cm/sec2 MV E max dre: 55.1 cm/sec TR max dre: 220.6 cm/sec MV A max dre: 70.2 cm/sec TR max P.5 mmHg MV E/A: 0.78 PA V2 max: 67.2 cm/sec Med Peak E' Dre: 3.3 cm/sec PA V2 mean: 46.0 cm/sec E/E' med: 16.9 PA mean P.98 mmHg Lat Peak E' Dre: 8.5 cm/sec PA pr(Accel): 19.8 mmHg E/E' lat: 6.5 E/e' average: 11.7 MV dec time: 0.22 sec SV(LVOT): 85.4 ml Reading Physician:10:21 AM
== END ==
PROVIDERS: PCP Student in an Organized Health Care Education/Training Program; Referring Provider Specialist; Visit Provider Specialist
DX: I71.2 Thoracic aortic aneurysm, without rupture (principal); I08.0 Rheumatic disorders of both mitral and aortic valves; I77.89 Other specified disorders of arteries and arterioles; R09.89 Other specified symptoms and signs involving the circulatory and respiratory systems
CPT/HCPCS: 93306; 93880

== ENCOUNTER → 2020-07-03 15:42 | Outpatient (CLI) | payer MEDICARE, BC, SELFPAY ==
[2020-07-03 17:06] LABS: Appearance Urine UA CLEAR; Bilirubin Urine UA NEGATIVE (NEGATIVE); Color Urine UA YELLOW; Glucose Urine UA NEGATIVE (Negative); Ketones Urine UA NEGATIVE (NEGATIVE); Leukocyte Esterase Urine UA 2+ (NEGATIVE); Nitrite Urine UA NEGATIVE (Negative); Occult Blood Urine UA 1+ (Negative); Protein Urine UA NEGATIVE (Negative); Urobilinogen Urine UA 0.2 E.U./dL (0.2)
[2020-07-03 17:18] LABS: Bacteria Urine Occasional (0-1); Culture Indicated Urine Specimen Cultured; RBC Urine 0-1/HPF (0-5/HPF); Squamous Epithelial Cell Urine 1-5 /HPF (0-5/HPF); Transitional Epi Cells Urine 1-5/HPF (0-5/HPF); WBC Urine 10-30/HPF (0-5/HPF)
== END ==
PROVIDERS: PCP Student in an Organized Health Care Education/Training Program; Referring Provider Student in an Organized Health Care Education/Training Program; Visit Provider Student in an Organized Health Care Education/Training Program
DX: R30.0 Dysuria (principal)
CPT/HCPCS: 81001; 87077; 87086; 87186

== ENCOUNTER → 2020-11-01 06:48 | Outpatient (CLI) | payer MEDICARE, BC, SELFPAY ==
[2020-11-01 08:27] LABS: BUN Creatinine Ratio 17.2 (6-22); Blood Urea Nitrogen 11 mg/dL (7-17); Calcium 9.9 mg/dL (8.4-10.2); Carbon Dioxide 27 mmol/L (22-32); Chloride 99 mmol/L (98-107); Estimated Glomerular Filt Rate > 60.0 mL/min (>60); Glucose 216 mg/dL (80-110); HEMOLYSIS < 15 (0-50); Potassium 4.5 mmol/L (3.4-5.1); Sodium 135 mmol/L (137-145)
[2020-11-01 08:30] LABS: Hemoglobin A1C% w Est Avg Glu 10.2 % (4.0-6.0)
== END ==
PROVIDERS: PCP Student in an Organized Health Care Education/Training Program; Referring Provider Student in an Organized Health Care Education/Training Program; Visit Provider Student in an Organized Health Care Education/Training Program
DX: E11.9 Type 2 diabetes mellitus without complications (principal); R80.9 Proteinuria, unspecified
CPT/HCPCS: 36415; 80048; 83036

== ENCOUNTER → 2020-11-01 09:11 | Outpatient (CLI) | payer MEDICARE, BC, SELFPAY ==
[2020-11-01 11:08] LABS: Creatinine Urine Random 159.4 mg/dL
[2020-11-01 11:14] LABS: Microalbumin Urine Random 7.5 mg/dL (0-1.6)
== END ==
PROVIDERS: PCP Student in an Organized Health Care Education/Training Program; Referring Provider Student in an Organized Health Care Education/Training Program; Visit Provider Student in an Organized Health Care Education/Training Program
DX: E11.9 Type 2 diabetes mellitus without complications (principal); R80.9 Proteinuria, unspecified
CPT/HCPCS: 36415; 80048; 82043; 82570; 83036

== ENCOUNTER → 2020-12-20 07:34 | Outpatient (CLI) | payer MEDICARE, BC, SELFPAY ==
[2020-12-21 08:05] LABS: Fructosamine 264 umol/L (0-285)
== END ==
PROVIDERS: PCP Student in an Organized Health Care Education/Training Program; Referring Provider Student in an Organized Health Care Education/Training Program; Visit Provider Student in an Organized Health Care Education/Training Program
DX: E11.9 Type 2 diabetes mellitus without complications (principal)
CPT/HCPCS: 36415; 82985

== ENCOUNTER → 2021-05-17 11:01 | Outpatient (CLI) | payer MEDICARE, BC, SELFPAY ==
[2021-05-17 12:18] LABS: Hemoglobin A1C% w Est Avg Glu 5.3 % (4.0-6.0)
[2021-05-17 12:38] LABS: Blood Urea Nitrogen 9 mg/dL (7-17); Estimated Glomerular Filt Rate > 60.0 mL/min (>60)
== END ==
PROVIDERS: PCP Student in an Organized Health Care Education/Training Program; Referring Provider Student in an Organized Health Care Education/Training Program; Visit Provider Student in an Organized Health Care Education/Training Program
DX: E11.9 Type 2 diabetes mellitus without complications (principal)
CPT/HCPCS: 36415; 82565; 83036; 84520

== ENCOUNTER → 2021-09-18 06:56 | Outpatient (CLI) | payer MEDICARE, BC, SELFPAY ==
[2021-09-18 09:43] LABS: Alanine Aminotransferase 14 IU/L (<35); Albumin 4.1 g/dL (3.5-5.0); Albumin Globulin Ratio 1.5 (1.0-2.8); Alkaline Phosphatase 49 U/L (38-126); Aspartate Aminotransferase 22 IU/L (14-36); Bilirubin Total 0.5 mg/dL (0.2-1.3); Blood Urea Nitrogen 11 mg/dL (7-17); Calcium 8.7 mg/dL (8.4-10.2); Carbon Dioxide 27 mmol/L (22-32); Chloride 103 mmol/L (98-107); Globulin 2.8 g/dL (1.7-4.1); Glucose 83 mg/dL (80-110); HEMOLYSIS < 15 (0-50); Potassium 4.6 mmol/L (3.4-5.1); Sodium 141 mmol/L (137-145); Total Protein 6.9 g/dL (6.3-8.2)
[2021-09-18 09:44] LABS: BUN Creatinine Ratio 15.7 (6-22); Estimated Glomerular Filt Rate > 60 mL/min (>60)
[2021-09-18 11:58] LABS: Hemoglobin A1C% w Est Avg Glu 5.5 % (4.0-6.0)
[2021-09-18 14:10] LABS: Creatinine Urine Random 177.8 mg/dL
[2021-09-18 14:15] LABS: Microalbumi Creatinin Ratio Ur 29.8 ug/mg CR (<30); Microalbumin Urine Random 5.3 mg/dL (0-1.6)
[2021-09-20 12:29] LABS: Cholesterol, Total 92 mg/dL (100-199); HDL-Cholesterol 40 mg/dL (>39); HDL-Particle (Total) 25.2 umol/L (>=30.5); Historical Reading Comment: (.); LDL Particle 332 nmol/L (<1000); LDL Size 20.2 nm (>20.5); LDL-Cholsterol 29 mg/dL (0-99); LP-IR Score 36 (<=45); Small LDL- Particle 220 nmol/L (<=527); Triglycerides 133 mg/dL (0-149)
== END ==
PROVIDERS: PCP Student in an Organized Health Care Education/Training Program; Referring Provider Specialist; Visit Provider Specialist
DX: I10 Essential (primary) hypertension (principal); E78.2 Mixed hyperlipidemia; E11.9 Type 2 diabetes mellitus without complications; R80.9 Proteinuria, unspecified
CPT/HCPCS: 36415; 80053; 80061; 82043; 82570; 83036; 83704; 83735

== ENCOUNTER → 2021-12-11 09:07 | Outpatient (CLI) | payer MEDICARE, BC, SELFPAY | PROVIDERS: PCP Student in an Organized Health Care Education/Training Program; Referring Provider Student in an Organized Health Care Education/Training Program; Visit Provider Student in an Organized Health Care Education/Training Program | DX: E11.9 Type 2 diabetes mellitus without complications (principal) | CPT/HCPCS: 36415; 83036 ==

== ENCOUNTER → 2022-09-02 06:52 | Outpatient (CLI) | payer MEDICARE, BC, SELFPAY ==
--- NOTE | 2022-09-02 | DI.ECHO.S_ITS ---
[place] [facility]---------+ [facility] +---------+ : : [address] : : : : [id number] : : : : Phone: [phone] : [phone] +[phone]+ Echocardiogram Report + + :Name: LEW PRATER Study Date: 09/02/2022 Height: 64 in : :[facility] ReadingLocation: Weight: 140 lb : : Gender: Female BSA: 1.7 m2 : :: 1945 Age: 77 yrs BP: 125/77 mmHg: :Reason For Study: THORACIC AORTIC ANEURYSM WITHOUT RUPTURE : :Ordering Physician: JODY, : :RYAN Performed By: Sharon Abernathy : :Referring: RYAN VERA : + + Interpretation Summary Left ventricular systolic function remains at the lower limits of normal with estimated ejection fraction of 50 to 55% without focal wall motion abnormality but appears slightly more dynamic compared to the previous study. Left ventricular size and wall thickness remain normal and essentially unchanged. While diastolic function remains challenging to assess, there is no evidence for increased filling pressures and is likely unchanged from the previous exam. The right ventricle remains normal and unchanged. Right ventricular systolic pressure is estimated at 23 mmHg with a CVP of around 3 mmHg. Both atria are normal in size and essentially unchanged from the previous exam. There is mild to moderate mild and pulmonic valve regurgitation and mild tricuspid regurgitation, all appearing grossly unchanged from the previous study. There continues to be mild aortic valve sclerosis with probable moderate aortic regurgitation, also likely unchanged. The ascending aorta remains moderate to severely enlarged but unchanged from the previous study. The ascending aorta is mildly enlarged and was not measured on the previous exam. The patient was in sinus rhythm at 53 to 61 bpm during the exam. Procedure: A two-dimensional transthoracic echocardiogram with color flow and Doppler was performed. The study quality was technically adequate. Comparison is made with the echocardiogram of 06/26/2020. The patient was in sinus rhythm with heart rates between 53-61 bpm during the exam. Left Ventricle: The left ventricle is normal in size and wall thickness. Left ventricular systolic function is low normal. The ejection fraction is estimated to be 50-55%. There are no focal wall motion abnormalities. This is slightly more dynamic compared to the previous study. Diastolic function could not be accurately assessed due to contradictory data. This is unchanged compared to the previous study. Right Ventricle: The right ventricle is normal in size and function. This is unchanged compared to the previous study. Atria: Both atria are normal in size. This is unchanged compared to the previous study. There is no Doppler evidence for an interatrial shunt. Mitral Valve: The mitral valve leaflets appear mildly thickened, but open well. There is mild to moderate mitral regurgitation. This is unchanged compared to the previous study. Aortic Valve: The aortic valve is trileaflet. There is mild aortic valve sclerosis. The aortic valve is mildly calcified. The aortic valve opens well. There is no aortic valve stenosis. There is moderate aortic regurgitation. This is unchanged compared to the previous study. Tricuspid Valve: The tricuspid valve leaflets are thin and pliable. There is mild tricuspid regurgitation. The right ventricular systolic pressure is estimated to be at least 23 mmHg based on an estimated right atrial pressure of 3 mm Hg. Pulmonic Valve: The pulmonic valve leaflets are thin and pliable; valve motion is normal. There is mild to moderate pulmonic regurgitation. This is unchanged compared to the previous study. Great Vessels: The aortic root is normal size. The ascending aorta is moderate-severely enlarged. This is unchanged compared to the previous study. The aortic arch is mildly enlarged. The IVC is of normal diameter and collapses greater than 50% with a sniff. This suggests a low right atrial pressure of 3 mm Hg. Pericardium/ Pleura There is no pericardial effusion. There is no pleural effusion. MMode/2D Measurements & Calculations LVIDd: 5.1 cm LVOT diam: 2.1 cm LVIDs: 3.3 cm Ao root diam: 3.6 cm FS: 35.8 % asc Aorta Diam: 4.7 cm EPSS: 0.95 cm Ao Arch Diam (Prox Trans): 3.3 cm IVSd: 0.87 cm LVPWd: 0.79 cm LV robles. diameter/BSA (cm/m^2): 3.0 LV sys. diameter/BSA (cm/m^2): 1.9 LA A2 area: 19.2 cm2 RA long axis: 4.8 cm LA A4 area: 15.2 cm2 RA area: 14.7 cm2 LA length (vol): 4.7 cm RA vol: 37.9 ml LA vol: 52.4 ml RA : 22.5 ml/m2 LA vol index: 31.2 ml/m2 IVC diam: 0.81 cm RVD1 (basal): 2.9 cm RVD2 (mid): 2.6 cm TAPSE: 1.8 cm Doppler Measurements & Calculations Ao V2 max: 121.3 cm/sec LVOT Max Dre: 91.7 cm/sec Ao V2 mean: 87.7 cm/sec LV V1 max P.4 mmHg Ao max P.9 mmHg LV V1 VTI: 22.0 cm Ao mean P.4 mmHg LUIS(I,D): 2.6 cm2 Ao V2 VTI: 28.7 cm LUIS(V,D): 2.6 cm2 sev ratio: 0.77 LUIS indexed to BSA (cm^2/m^2): 1.6 AI P1/2t: 579.4 msec AI dec slope: 235.7 cm/sec2 MV E max dre: 53.1 cm/sec TR max dre: 225.8 cm/sec MV A max dre: 75.7 cm/sec TR max P.4 mmHg MV E/A: 0.70 PA V2 max: 86.0 cm/sec Med Peak E' Dre: 3.3 cm/sec PA V2 mean: 63.1 cm/sec E/E' med: 16.3 PA mean P.8 mmHg Lat Peak E' Dre: 6.2 cm/sec PA pr(Accel): 24.2 mmHg E/E' lat: 8.6 E/e' average: 12.4 MV dec time: 0.32 sec SV(LVOT): 75.3 ml Reading Physician:09:15 AM
[2022-09-02 09:32] LABS: Magnesium 1.5 mg/dL (1.6-2.3)
[2022-09-02 09:36] LABS: Alanine Aminotransferase 18 IU/L (<35); Albumin Globulin Ratio 1.2 (1.0-2.8); Alkaline Phosphatase 69 U/L (38-126); Aspartate Aminotransferase 21 IU/L (14-36); BUN Creatinine Ratio 20.8 (6-22); Bilirubin Total 0.7 mg/dL (0.2-1.3); Blood Urea Nitrogen 15 mg/dL (7-17); Carbon Dioxide 32 mmol/L (22-32); Chloride 99 mmol/L (98-107); Estimated Glomerular Filt Rate > 60 mL/min (>60); Globulin 3.4 g/dL (1.7-4.1); Glucose 205 mg/dL (80-110); HEMOLYSIS < 15 (0-50); Potassium 4.3 mmol/L (3.4-5.1); Sodium 136 mmol/L (137-145); Total Protein 7.4 g/dL (6.3-8.2)
[2022-09-02 15:20] LABS: Creatinine Urine Random 87.4 mg/dL
[2022-09-02 15:25] LABS: Microalbumi Creatinin Ratio Ur 21.7 ug/mg CR (<30); Microalbumin Urine Random 1.9 mg/dL (0-1.6)
[2022-09-02 16:34] LABS: Hep C Virus Ab w/Reflex Quant NEGATIVE s/c (NEGATIVE)
[2022-09-03 07:10] LABS: x Labcorp Estim. Avg Glu (eAG) 214 mg/dL (.); x Labcorp Hemoglobin A1c 9.1 % (4.8-5.6)
[2022-09-04 15:36] LABS: Cholesterol, Total 128 mg/dL (100-199); HDL-Cholesterol 37 mg/dL (>39); HDL-Particle (Total) 24.7 umol/L (>=30.5); LDL Particle 532 nmol/L (<1000); LDL Size 20.3 nm (>20.5); LDL-Cholsterol 58 mg/dL (0-99); LP-IR Score 76 (<=45); Small LDL- Particle 285 nmol/L (<=527); Triglycerides 204 mg/dL (0-149)
== END ==
PROVIDERS: PCP Student in an Organized Health Care Education/Training Program; Referring Provider Specialist; Visit Provider Specialist
DX: I08.3 Combined rheumatic disorders of mitral, aortic and tricuspid valves; I71.20 Thoracic aortic aneurysm, without rupture, unspecified; I77.89 Other specified disorders of arteries and arterioles; I10 Essential (primary) hypertension; E78.2 Mixed hyperlipidemia; E11.9 Type 2 diabetes mellitus without complications; F32.9 Major depressive disorder, single episode, unspecified; Z11.59 Encounter for screening for other viral diseases
CPT/HCPCS: 36415; 80053; 80061; 82043; 82570; 83036; 83704; 83735; 86803; 93306

== ENCOUNTER → 2023-04-25 08:27 | Outpatient (CLI) | payer MEDICARE, BC, SELFPAY ==
[2023-04-25 09:24] LABS: Alanine Aminotransferase 20 IU/L (<35); Albumin 4.2 g/dL (3.5-5.0); Albumin Globulin Ratio 1.2 (1.0-2.8); Alkaline Phosphatase 75 U/L (38-126); Aspartate Aminotransferase 23 IU/L (14-36); BUN Creatinine Ratio 20.3 (6-22); Bilirubin Total 0.9 mg/dL (0.2-1.3); Blood Urea Nitrogen 15 mg/dL (7-17); Calcium 9.4 mg/dL (8.4-10.2); Carbon Dioxide 30 mmol/L (22-32); Chloride 99 mmol/L (98-107); Cholesterol 147 mg/dL (140-199); Estimated Glomerular Filt Rate > 60 mL/min (>60); Globulin 3.5 g/dL (1.7-4.1); Glucose 275 mg/dL (80-110); HDL Cholesterol 38 mg/dL (40-60); HEMOLYSIS < 15 (0-50); LDL Cholesterol Calculated 50 mg/dL (<100); Magnesium 1.5 mg/dL (1.6-2.3); Potassium 4.5 mmol/L (3.4-5.1); Sodium 138 mmol/L (137-145); Total Protein 7.7 g/dL (6.3-8.2); Triglycerides 297 mg/dL (35-150)
== END ==
PROVIDERS: PCP Family Medicine; Referring Provider Specialist; Visit Provider Specialist
DX: I10 Essential (primary) hypertension (principal); E78.2 Mixed hyperlipidemia
CPT/HCPCS: 36415; 80053; 80061; 83735

== ENCOUNTER → 2023-07-22 07:20 | Outpatient (CLI) | payer MEDICARE, BC, SELFPAY ==
[2023-07-22 08:50] LABS: Hemoglobin A1C% w Est Avg Glu 13.2 % (4.0-6.0)
[2023-07-22 08:55] LABS: Magnesium 1.8 mg/dL (1.6-2.3)
== END ==
LOC: LAB 07:22
PROVIDERS: PCP Family Medicine; Referring Provider Family Medicine; Visit Provider Family Medicine
DX: E11.9 Type 2 diabetes mellitus without complications (principal); E83.42 Hypomagnesemia
CPT/HCPCS: 36415; 83036; 83735

== ENCOUNTER → 2023-07-28 09:29 | Outpatient (CLI) | payer MEDICARE, BC, SELFPAY ==
[2023-07-28 11:13] LABS: TSH w/ Reflex to FT4 1.72 uIU/mL (0.47-4.68)
== END ==
PROVIDERS: PCP Family Medicine; Referring Provider Family Medicine; Visit Provider Family Medicine
DX: Z86.39 Personal history of other endocrine, nutritional and metabolic disease (principal)
CPT/HCPCS: 36415; 84443

== ENCOUNTER → 2023-11-13 07:23 | Outpatient (CLI) | payer MEDICARE, BC, SELFPAY ==
[2023-11-13 08:29] LABS: Alanine Aminotransferase 16 IU/L (<35); Albumin 4.2 g/dL (3.5-5.0); Albumin Globulin Ratio 1.4 (1.0-2.8); Alkaline Phosphatase 79 U/L (38-126); Aspartate Aminotransferase 23 IU/L (14-36); BUN Creatinine Ratio 15.9 (6-22); Bilirubin Total 0.7 mg/dL (0.2-1.3); Blood Urea Nitrogen 13 mg/dL (7-17); Calcium 9.5 mg/dL (8.4-10.2); Carbon Dioxide 29 mmol/L (22-32); Chloride 101 mmol/L (98-107); Estimated Glomerular Filt Rate > 60 mL/min (>60); Globulin 3.1 g/dL (1.7-4.1); Glucose 253 mg/dL (80-110); HEMOLYSIS < 15 (0-50); Potassium 4.3 mmol/L (3.4-5.1); Sodium 138 mmol/L (137-145); Total Protein 7.3 g/dL (6.3-8.2)
[2023-11-15 14:08] LABS: Cholesterol, Total 129 mg/dL (100-199); HDL-Cholesterol 35 mg/dL (>39); HDL-Particle (Total) 23.3 umol/L (>=30.5); Historical Reading Comment: (.); LDL Particle 583 nmol/L (<1000); LDL Size 20.2 nm (>20.5); LDL-Cholsterol 55 mg/dL (0-99); LP-IR Score 74 (<=45); Small LDL- Particle 334 nmol/L (<=527); Triglycerides 247 mg/dL (0-149)
== END ==
PROVIDERS: PCP Family Medicine; Referring Provider Specialist; Visit Provider Specialist
DX: E78.2 Mixed hyperlipidemia (principal); I10 Essential (primary) hypertension; R79.89 Other specified abnormal findings of blood chemistry
CPT/HCPCS: 36415; 80053; 80061; 83704; 84443

== ENCOUNTER → 2024-06-29 08:48 | Outpatient (CLI) | payer MEDICARE, BC, SELFPAY ==
[2024-06-29 10:13] LABS: Alanine Aminotransferase 20 IU/L (<35); Albumin 4.4 g/dL (3.5-5.0); Albumin Globulin Ratio 1.3 (1.0-2.8); Alkaline Phosphatase 80 U/L (38-126); Aspartate Aminotransferase 26 IU/L (14-36); Bilirubin Total 0.8 mg/dL (0.2-1.3); Blood Urea Nitrogen 16 mg/dL (7-17); Calcium 9.4 mg/dL (8.4-10.2); Carbon Dioxide 26 mmol/L (22-32); Chloride 98 mmol/L (98-107); Estimated Glomerular Filt Rate > 60 mL/min (>60); Globulin 3.3 g/dL (1.7-4.1); Glucose 342 mg/dL (80-110); HEMOLYSIS < 15 (0-50); Magnesium 1.8 mg/dL (1.6-2.3); Potassium 4.6 mmol/L (3.4-5.1); Sodium 134 mmol/L (137-145); Total Protein 7.7 g/dL (6.3-8.2)
[2024-07-01 16:08] LABS: Cholesterol, Total 148 mg/dL (100-199); HDL-Cholesterol 37 mg/dL (>39); HDL-Particle (Total) 21.7 umol/L (>=30.5); LDL Particle 615 nmol/L (<1000); LDL Size 20.4 nm (>20.5); LDL-Cholsterol 64 mg/dL (0-99); LP-IR Score 56 (<=45); Small LDL- Particle 264 nmol/L (<=527); Triglycerides 295 mg/dL (0-149)
== END ==
PROVIDERS: PCP Family Medicine; Referring Provider Specialist; Visit Provider Specialist
DX: R73.9 Hyperglycemia, unspecified (principal); I10 Essential (primary) hypertension; E78.2 Mixed hyperlipidemia
CPT/HCPCS: 36415; 80053; 80061; 83036; 83704; 83735

== ENCOUNTER → 2024-10-14 10:52 | Outpatient (CLI) | payer MEDICARE, BC, SELFPAY ==
[2024-10-14 11:24] LABS: Add Manual Diff / Slide Review NO; Hematocrit 41.7 % (36-46); Hemoglobin 14.3 g/dL (12.0-16.0); Lymphocytes Absolute Auto 1700 /uL (1100-4500); Mean Corpuscular HGB Conc 34.2 % (30-36); Mean Corpuscular Hemoglobin 29.2 PG (26-34); Mean Corpuscular Volume 85.4 fL (80-100); Platelet Count 179 X10^3/uL (150-400)
[2024-10-14 12:03] LABS: Hemoglobin A1C% w Est Avg Glu 11.3 % (4.0-6.0)
== END ==
PROVIDERS: PCP Family Medicine; Referring Provider Family Medicine; Visit Provider Family Medicine
DX: I10 Essential (primary) hypertension (principal); E11.69 Type 2 diabetes mellitus with other specified complication; E78.5 Hyperlipidemia, unspecified
CPT/HCPCS: 36415; 83036; 85025